=== PATIENT | male | born 1980 | race Caucasian/White ===

== ENCOUNTER 2020-12-08 22:52 | Emergency (ER) | payer OTHER, SELFPAY ==
[2020-12-08 22:52] VITALS: BP 122/92; PULSE 89; RESP 20; TEMP 36.3; O2SAT 99
--- NOTE | 2020-12-08 22:59 | ED.GENADULT ---
HPI - General Adult General Chief complaint: Overdose Stated complaint: AMB Source: patient and EMS Mode of arrival: ambulatory Limitations: no limitations History of Present Illness HPI narrative: Albert is a 40M with a PMH of substance abuse, multiple fused vertebra that was brought to the emergency department via ems after an apparent overdose. He went over to the neighbors and returned. He then started acting funny and became comatose. They then found a syringe with clear liquid. By the time first responders got there they could not get a pulse and he had agonal respirations. CPR was started and 3 rounds were done as well as 3 doses of intranasal narcan after which he came to. He currently has no complaints. He even denies chest pain after the compressions. He stated that he was not intentionally trying to OD from the drugs and denied SI and HI. Related Data Allergies Allergy/AdvReac Type Severity Reaction Status Date / Time No Known Allergies Allergy Unverified 11/26/12 13:37 Review of Systems Constitutional: Constitutional: Reports no additional constitutional complaints Eyes: Eyes: Reports no additional eye complaints ENT: Reports system reviewed and no additional complaints, except as documented Cardiovascular: Cardiovascular: Reports no additional cardiovascular complaints Respiratory: Respiratory: Reports no additional respiratory complaints Gastrointestinal: Gastrointestinal: Reports no additional gastrointestinal complaints Genitourinary: Genitourinary: Reports no additional male genitourinary complaints Musculoskeletal: Musculoskeletal: Reports no additional musculoskeletal complaints Integumentary/Breasts: Skin/Breast: Reports system reviewed and no additional complaints, except as docu Neurologic: Reports system reviewed and no additional complaints, except as documented Psychiatric: Psychiatric: Reports no additional psychiatric complaints Endocrine: Endocrine: Reports no additional endocrine complaints Hematologic/Lymphatic: Hematologic/Lymphatic: Reports no additional hematologic/lymphatic complaints Allergic/Immunologic: Allergic/Immunologic: Reports no additional allergic/immunologic complaints [facility] Family History Family History Mother Family history of thyroid disease Social History Social History Alcohol intake: current Exam Const: General: alert Orientation/consciousness: patient oriented x3 Other: Lying in bed not able to sit still HENMT: Other: normocephlic, atraumatic Eyes: Conjunctivae: conjunctivae normal Pupils: Equal, round and reactive pupils present Neck: Neck: normal visual inspection Chest: Chest palpation & inspection: normal inspection of the chest Resp: Effort & Inspection: normal respiratory effort Auscultation: clear to auscultation bilaterally Cardio: Rate: regular rate Rhythm: regular rhythm GI: Inspection: non-distended GI Palp: Yes Soft to palpation, No Tenderness to palpation present (GI) and No Guarding due to palpation present (GI) Back/Spine/Pelvis: Back: no CVA tenderness Skin: General skin exam: normal color Rashes: no rashes Neuro: General: patient oriented x3, moves all extremities and CN's II-XI intact bilaterally Other: *pupils were reactive but a bit sluggish Extrem: General: normal to inspection Psych: Appearance: grossly normal Mental Status: mental status grossly normal Affect: normal affect Course Course Emergency Course: Labs were ordered and he was placed on the monitor. However, he then decided to refuse treatment. He was A&Ox3. He was aware that if he went home the narcan could wear off and he could OD again leading to permanent pain, disability or . He voiced understanding, signed AMA paperwork and left with his family. Discharge Plan Discharge Clinical Impression: Drug overdose Patient Dispos
--- NOTE | 2020-12-09 01:50 | PC.NURSE ---
12/08/20 2310 lab staff entered room to draw blood, RN in room explained need for lab and urine specimen. pt refused, stated I dont need all that I'm fine . explained to pt overdose with no pulse, not breathing, cpr was started, narcan given. pt continues to refuse. erp dr fitch notified pt continues to refuse all treatment and observation. Dr fitch in with pt, discussed extensively outcomes of accidental overdose, cpr, no pulse and narcan will wear off and may again become unresponsive with possible imminent . pt continued to refuse. pt alert and oriented x4 (month ,day, year, birthday). 2320 Pt signed ama after extensive risks and benefits discussed by RN and Dr Fitch. 232 Pt ambulated with RN to [facility]. Mother waiting. RN explained to mother that pt had been discharged as he refused all treatments and admission.2330 pt departed [facility] ambulatory with mother.
== END 2020-12-08 23:20 | disposition left against medical advice (07) ==
PROVIDERS: Emergency Provider Family Medicine
DX: T50.901A Poisoning by unspecified drugs, medicaments and biological substances, accidental (unintentional), initial encounter (principal)
CPT/HCPCS: 99282; 99283

== ENCOUNTER 2020-12-10 07:26 | Emergency (ER) | payer OTHER, SELFPAY ==
[2020-12-10 07:30] VITALS: BP 128/80; PULSE 95; RESP 12; TEMP 36.4; O2SAT 87
--- NOTE | 2020-12-10 07:36 | ECG_ITS ---
Measurements Intervals [place] Rate: 85 P: 66 TX: 154 QRS: 96 QRSD: 97 T: 47 QT: 401 QTc: 478 Interpretive Statements SINUS RHYTHM RIGHT AXIS DEVIATION VOLTAGE CRITERIA FOR LVH CONSIDER INFERIOR INFARCT, AGE INDETERMINATE BASELINE ARTIFACT- II, III ABNORMAL ECG Electronically Signed On 12-10-2020 7:51:09 CDT by Mekhi Lainez D.O.
[2020-12-10] MEDS: NALOXONE HCL INJ 2 MG/2 ML AMP 1 MG IV PUSH (07:42)
[2020-12-10 07:55] VITALS: O2SAT 100
[2020-12-10 07:59] LABS: Basophils Absolute Auto 0.02 K/mm3 (0.00-0.10); Basophils Percent Auto 0.4 % (0.0-1.0); Eosinophils Absolute Auto 0.12 K/mm3 (0.02-0.50); Eosinophils Percent Auto 2.2 % (1.0-6.0); Hematocrit 37.1 % (40.0-54.0); Hemoglobin 12.1 g/dL (14.0-18.0); Immature Granulocyte Absolute 0.01 K/mm3 (0.00-0.00); Immature Granulocyte Percent A 0.2 % (0.0-0.0); Lymphocytes Absolute Auto 2.22 K/mm3 (1.10-4.50); Lymphocytes Percent Auto 40.8 % (18.0-42.0); Mean Corpuscular HGB Conc 32.6 g/dL (32.0-36.0); Mean Corpuscular Hemoglobin 27.8 pg (27.0-31.0); Mean Corpuscular Volume 85.3 fL (78.0-102.0); Mean Platelet Volume 8.6 fl (8.7-11.0); Monocytes Absolute Auto 0.53 K/mm3 (0.10-0.90); Monocytes Percent Auto 9.7 % (2.0-11.0); Neutrophils Absolute Auto 2.5 K/mm3 (1.7-7.2); Neutrophils Percent Auto 46.7 % (50.0-70.0); Platelet Count Result 199 K/mm3 (150-420); Red Blood Count 4.35 M/mm3 (4.70-6.10); Red Cell Distribution Width 13.8 % (11.6-14.4); White Blood Count 5.4 K/mm3 (4.8-10.8)
--- NOTE | 2020-12-10 07:59 | ED.OVERDOSE ---
HPI - Overdose General Chief Complaint: Overdose Stated Complaint: drugs Time Seen by Provider: 12/10/20 07:35 Source: patient and family Mode of arrival: ambulatory Limitations: no limitations History of Present Illness HPI Narrative: This gentleman is a 40 yr old man who comes in, brought in by his mother, because he was not acting right this am. It sounds like he snorted some Oxycodone this am, mixed with another narcotic, probably a form of fentanyl. It sounds like after that he was desatting down into the 80s for a little while. (Nothing helped this at home. There were no interventions, other than to bring him to ER. The RN gave him Narcan 1mg when he came in. He is more awake now. He was seen on 12/08/[address] Fitch in our ER. On that day 911 was called to his house. He had evidently gone over to a neighbors house, taken narcotics and then came home. He then became non responsive and 911 was called. He had no pulse detectable and only agona respirations then. He had CPR done on him for 3 rounds of 2 minutes and intranasal Narcan was given. He was brought into ER, stabilized and he woke up. He then proceeded to sign out AMA and left. I do get a history that he has had a lumbar fusion in the past. It appears that part of his motivation in taking narcotics, is probably pain relief. It is difficult to get much of a history from him as he does not talk in a clear manner, although he has no obvious speech deficit. MD complaint: accidental overdose Onset (ago): minute(s) Timing confirmed by: family member Intent: unwilling to say and other (it appears this was a simple overdose with no thought for self harm) Context: Accidental Overdose: wanted to get high and medication error Associated symptoms: other (chronic back pain) Related Data Home Medications Medication Instructions Recorded Confirmed cyclobenzaprine 10 mg PO BID 12/09/20 12/10/20 Allergies Allergy/AdvReac Type Severity Reaction Status Date / Time No Known Allergies Allergy Unverified 11/26/12 13:37 Review of Systems Constitutional: Constitutional: Reports no additional constitutional complaints Eyes: Eyes: Reports no additional eye complaints ENT: Reports system reviewed and no additional complaints, except as documented Cardiovascular: Cardiovascular: Reports no additional cardiovascular complaints Respiratory: Respiratory: Reports no additional respiratory complaints Gastrointestinal: Gastrointestinal: Reports no additional gastrointestinal complaints Genitourinary: Genitourinary: Reports no additional male genitourinary complaints Musculoskeletal: Musculoskeletal: Reports no additional musculoskeletal complaints Integumentary/Breasts: Skin/Breast: Reports system reviewed and no additional complaints, except as docu Neurologic: Reports system reviewed and no additional complaints, except as documented Psychiatric: Psychiatric: Reports no additional psychiatric complaints Endocrine: Endocrine: Reports no additional endocrine complaints Hematologic/Lymphatic: Hematologic/Lymphatic: Reports no additional hematologic/lymphatic complaints Allergic/Immunologic: Allergic/Immunologic: Reports no additional allergic/immunologic complaints [facility] Past Medical History Medical History (Updated 12/11/20 @ 00:03 by Frederick Childers MD) Chronic back pain Spinal fusion failure Family History Family History (Updated 12/11/20 @ 00:04 by Frederick Childers MD) Mother Family history of thyroid disease No significant family history Social History Social History (Updated 12/11/20 @ 00:04 by Frederick Childers MD) Alcohol intake: current Additional living arrangements comments: now living with mother Exam Const: Nutritional Appearance: thin Limitations: altered mental status HENMT: Head: normal to inspection Ears: external ears normal General nose exam: Normal external nose present Face and sinus: normal facial exam Mouth: Yes Abn
[2020-12-10 08:30] LABS: Alanine Aminotransferase 78 U/L (16-63); Albumin Level 3.6 g/dL (3.4-5.0); Alkaline Phosphatase 60 U/L (46-116); Anion Gap 5 mmol/L (8-16); Aspartate Amino Transferase 63 U/L (15-37); Bilirubin,Total 0.4 mg/dL (0.00-1.00); Blood Urea Nitrogen 13 mg/dL (7-18); Calcium 8.5 mg/dL (8.5-10.1); Carbon Dioxide 30 mmol/L (21-32); Chloride 102 mmol/L (98-108); Estimated Glomerular Filt Rate > 60; Glucose 94 mg/dL (70-99); Osmolality Calculated 284 mOsm/kg (285-295); Potassium 3.2 mmol/L (3.5-5.1); Salicylate 1.6 mg/dL (2.8-20.0); Sodium 137 mmol/L (136-145); Thyroid Stimulating Hormone 4.74 uIU/mL (0.36-3.74); Total Protein 7.2 g/dL (6.4-8.2)
[2020-12-10 08:32] LABS: Acetaminophen < 2 ug/mL (10-30); Ethanol < 3 mg/dL (0-6)
[2020-12-10] MEDS: POTASSIUM BICARBONATE 25 MEQ TABEF 50 MEQ PO (08:48)
[2020-12-10] MEDS: KETOROLAC 30 MG/ML VIAL (*BKC) IV PUSH (08:49)
[2020-12-10 08:59] VITALS: BP 133/82; PULSE 70; O2SAT 100
== END 2020-12-10 09:00 | disposition home or self-care (01) ==
PROVIDERS: Emergency Provider Emergency Medicine
DX: T50.901A Poisoning by unspecified drugs, medicaments and biological substances, accidental (unintentional), initial encounter (principal)
CPT/HCPCS: 36415; 80053; 80307; 84443; 85025; 93005; 96374; 96375; 99283; 99284; A9270; J1885; J2310

== ENCOUNTER 2021-01-02 19:17 | Emergency (ER) | payer OTHER, SELFPAY ==
[2021-01-02 19:35] VITALS: BP 137/88; PULSE 95; RESP 20; TEMP 36.6; O2SAT 96
[2021-01-02 19:41] VITALS: RESP 20
[2021-01-02 19:43] LABS: Basophils Absolute Auto 0.04 K/mm3 (0.00-0.10); Basophils Percent Auto 0.4 % (0.0-1.0); Eosinophils Absolute Auto 0.25 K/mm3 (0.02-0.50); Eosinophils Percent Auto 2.6 % (1.0-6.0); Hematocrit 39.1 % (40.0-54.0); Hemoglobin 12.9 g/dL (14.0-18.0); Immature Granulocyte Absolute 0.02 K/mm3 (0.00-0.00); Immature Granulocyte Percent A 0.2 % (0.0-0.0); Lymphocytes Absolute Auto 2.59 K/mm3 (1.10-4.50); Lymphocytes Percent Auto 26.9 % (18.0-42.0); Mean Corpuscular Hemoglobin 28.2 pg (27.0-31.0); Mean Corpuscular Volume 85.6 fL (78.0-102.0); Mean Platelet Volume 8.7 fl (8.7-11.0); Monocytes Absolute Auto 0.96 K/mm3 (0.10-0.90); Neutrophils Absolute Auto 5.8 K/mm3 (1.7-7.2); Neutrophils Percent Auto 59.9 % (50.0-70.0); Platelet Count Result 261 K/mm3 (150-420); Red Blood Count 4.57 M/mm3 (4.70-6.10); Red Cell Distribution Width 14.1 % (11.6-14.4); White Blood Count 9.6 K/mm3 (4.8-10.8)
[2021-01-02 20:00] LABS: Alanine Aminotransferase 143 U/L (16-63); Albumin Level 4.1 g/dL (3.4-5.0); Alkaline Phosphatase 79 U/L (46-116); Anion Gap 11 mmol/L (8-16); Aspartate Amino Transferase 81 U/L (15-37); Bilirubin,Total 0.4 mg/dL (0.00-1.00); Blood Urea Nitrogen 18 mg/dL (7-18); Calcium 9.3 mg/dL (8.5-10.1); Carbon Dioxide 27 mmol/L (21-32); Chloride 101 mmol/L (98-108); Creatine Kinase 518 U/L (39-308); Estimated CRCL calculation 80 ml/min; Estimated Glomerular Filt Rate > 60; Glucose 84 mg/dL (70-99); Osmolality Calculated 288 mOsm/kg (285-295); Potassium 3.6 mmol/L (3.5-5.1); Sodium 139 mmol/L (136-145); Total Protein 8.1 g/dL (6.4-8.2)
[2021-01-02] MEDS: SODIUM CHLORIDE 0.9% IV 1,000 ML 999 ML IV CONT (20:21)
--- NOTE | 2021-01-02 20:35 | PC.NURSE ---
Pt. not wanting to stay and give urine. Pt. wanting to sign AMA and leave. Pt. states he knows he has a drug problem and has f/u plans and a bed awaiting him at [facility] for rehab program. ERP in to explain reasons as to why we need urine and possible admit to hospital. Pt still refusing p all risks/benefits explained to him by this RN and ERP Dr Conde. Paperwork signed and pt. left c mother.
--- NOTE | 2021-01-02 20:44 | ED.GENADULT ---
HPI - General Adult General Chief complaint: Overdose Stated complaint: on something Source: patient and family Mode of arrival: ambulatory Limitations: no limitations History of Present Illness HPI narrative: patient presents to the ER with his mother after his mother was concerned that he is not acting appropriately, the patient does have a history of drug abuse but denies any current drug use except for prescription Adderall and prescription Flexeril that he took earlier today in the Adderall 2 days ago. Currently denies any chest pain no shortness of breath no nausea vomiting no headaches no blurry vision. And no fever chills no diarrhea constipation or abdominal pain. Patient apparently uses methamphetamines but denies having used any recently and according to patient none today. Onset (ago): day(s) Radiation: non-radiation Related Data Home Medications Medication Instructions Recorded Confirmed cyclobenzaprine 10 mg PO BID 12/09/20 01/02/21 trazodone 50 mg PO HS 01/02/21 01/02/21 Allergies Allergy/AdvReac Type Severity Reaction Status Date / Time No Known Allergies Allergy Unverified 11/26/12 13:37 Review of Systems Review of Systems: All systems reviewed & are unremarkable except as noted in HPI and below PMFSH Past Medical History Medical History Chronic back pain Spinal fusion failure Family History Family History Mother Family history of thyroid disease No significant family history Social History Social History Alcohol intake: current Substance use type: methamphetamine and prescription drug Additional living arrangements comments: now living with mother Course Course Emergency Course: Patient had lab work that was reviewed with patient had a high CK level of 500 patient received IV fluids was able give us a urine sample and did not want to wait in the ER any longer, and his mother also left and decided that she would wait in the car. Patient was some signing out against medical advice. Vital Signs Vital signs: Vital Signs Temperature 36.6 C 01/02/21 19:35 Pulse Rate 95 01/02/21 19:35 Respiratory Rate 20 01/02/21 19:35 Blood Pressure 137/88 01/02/21 19:35 Pulse Oximetry 96 01/02/21 19:35 Temperature 36.6 C 01/02/21 19:35 Pulse Rate 95 01/02/21 19:35 Respiratory Rate 20 01/02/21 19:41 Blood Pressure 137/88 01/02/21 19:35 Pulse Oximetry 96 01/02/21 19:35 Medical Decision Making Vital Signs Vital Signs: Vital Signs Temperature 36.6 C 01/02/21 19:35 Pulse Rate 95 01/02/21 19:35 Respiratory Rate 20 01/02/21 19:35 Blood Pressure 137/88 01/02/21 19:35 Pulse Oximetry 96 01/02/21 19:35 Temperature 36.6 C 01/02/21 19:35 Pulse Rate 95 01/02/21 19:35 Respiratory Rate 20 01/02/21 19:41 Blood Pressure 137/88 01/02/21 19:35 Pulse Oximetry 96 01/02/21 19:35 Lab Data Result diagrams: 01/02/21 19:40 01/02/21 19:40 Labs: Lab Results 01/02/21 01/02/21 Range/Units 19:40 19:40 WBC 9.6 (4.8-10.8) K/mm3 RBC 4.57 L (4.70-6.10) M/mm3 Hgb 12.9 L (14.0-18.0) g/dL Hct 39.1 L (40.0-54.0) % MCV 85.6 (78.0-102.0) fL MCH 28.2 (27.0-31.0) pg MCHC 33.0 (32.0-36.0) g/dL RDW 14.1 (11.6-14.4) % Plt Count 261 (150-420) K/mm3 MPV 8.7 (8.7-11.0) fl Immature Gran % (Auto) 0.2 H (0.0-0.0) % Neut % (Auto) 59.9 (50.0-70.0) % Lymph % (Auto) 26.9 (18.0-42.0) % [place] % (Auto) 10.0 (2.0-11.0) % Eos % (Auto) 2.6 (1.0-6.0) % Baso % (Auto) 0.4 (0.0-1.0) % Lymph # (Auto) 2.59 (1.10-4.50) K/mm3 [place] # (Auto) 0.96 H (0.10-0.90) K/mm3 Eos # (Auto) 0.25 (0.02-0.50) K/mm3 Baso # (Auto) 0.04 (0.00-0.10) K/mm3 Abs Immat Gran (auto) 0.02 H (0.00-0.00) K/mm3 Absol
[2021-01-02 20:53] VITALS: BP 128/79; PULSE 87; RESP 18; O2SAT 98
== END 2021-01-02 20:54 | disposition left against medical advice (07) ==
PROVIDERS: Emergency Provider Emergency Medicine
DX: F19.90 Other psychoactive substance use, unspecified, uncomplicated (principal)
CPT/HCPCS: 36415; 80053; 82550; 85025; 99282; 99283; J7030

== ENCOUNTER 2021-11-23 06:36 | Emergency (ER) | payer OTHER, SELFPAY ==
[2021-11-23] VITALS (34 sets, daily range): BP systolic 101–152; BP diastolic 72–132; PULSE 80–130; RESP 18–34; TEMP 36.1; O2SAT 96–100
--- NOTE | ~2021-11-23 | XR_ITS ---
EXAMINATION: XR chest ET placement DATE: 11/23/2021 08:48 INDICATION: Endotracheal tube advancement. TECHNIQUE: A single frontal view of the chest was obtained. COMPARISON: Chest single view at 7:50 AM FINDINGS: There is no pneumonia, pleural effusion, or pneumothorax. The heart size is normal. The end otracheal tube tip is 4.5 cm above the haile. The nasogastric tube tip is beyond the inferior margin of the radiograph, but at least to the stomach. There are changes of posterior fusion procedure in t horacolumbar spine. There is fracture of the vertical casimiro on the right. IMPRESSION: 1. No acute cardiopulmonary disease. 2. Posterior fusion procedure involving thoracolumbar spine with fractured right-sided vertical casimiro. Reviewed, dictated and finalized at location B. IMPRESSION: 1. No acute cardiopulmonary disease. 2. Posterior fusion procedure involving thoracolumbar spine with fractured righ t-sided vertical casimiro.
--- NOTE | ~2021-11-23 | CT_ITS ---
EXAMINATION: CT brain wo con DATE: 11/23/2021 09:09 INDICATION: Altered mental status. Unresponsive. TECHNIQUE: Computed tomography (CT) of the head was performed without intravenous contrast. The mA wa s adjusted according to patient size. Iterative reconstruction technique was employed. The dose-lengt h product was 681.00 mGy-cm. COMPARISON: Head CT 09/12/2013 FINDINGS: There is an acute subdural hematoma overlying left frontoparietal region with maximum thick ness of 3 mm. There is no acute ischemic infarct or abnormal mass lesion. The ventricles are normal i n size. There is mucosal thickening in the paranasal sinuses. The orbits are normal. There is a small left mastoid effusion. There is a left posterior scalp laceration. IMPRESSION: 1. Acute left-sided frontoparietal subdural hematoma with maximum thickness of 3 mm. I called this re sult to Dr. Sharp. Reviewed, dictated and finalized at location B. IMPRESSION: 1. Acute left-sided frontoparietal subdural hematoma with maximum thickness of 3 mm. I called this result to Dr. Sharp.
--- NOTE | ~2021-11-23 | XR_ITS ---
EXAMINATION: XR abdomen NG/feed tube insert DATE: 11/23/2021 08:49 INDICATION: Orogastric tube placement. TECHNIQUE: A supine view of the abdomen was obtained. COMPARISON: None. FINDINGS: The lower abdomen is excluded. There are no dilated loops of bowel. The nasogastric tube ti p is in the first portion of the duodenum. There are changes of posterior fusion procedure in thoraco lumbar spine. There is fracture of the right-sided vertical casimiro. IMPRESSION: 1. Nasogastric tube tip in the first portion of the duodenum. 2. Posterior fusion procedure in thoracolumbar spine with fracture of the right-sided vertical casimiro. Reviewed, dictated and finalized at location B. IMPRESSION: 1. Nasogastric tube tip in the first portion of the duodenum. 2. Posterior fusion procedure in thoracolumbar spine with fracture of the right -sided vertical casimiro.
--- NOTE | ~2021-11-23 | XR_ITS ---
CORRECTED REPORT order change 11/05/20[place] [facility] [place] XR chest ET placement EXAM DATE: 11/23/2021 07:48 INDICATION: ET tube placement, pt found unresponsive this morning . TECHNIQUE: Portable AP frontal chest x-ray was obtained. There is no prior study for comparison. FINDINGS: Endotracheal tube tip is 4-5 centimeters above the haile. No confluent consolidation, pneumothorax or pleural effusion suspected. Cardiomediastinal silhouette is normal. Patient has thoracolumbar Lopez rods and the right one is fractured between the T11 and T12 vertebral body levels. IMPRESSION: 1. ET tube in position. 2. No acute cardiopulmonary findings. 3. Thoracolumbar Lopez rods, right side fractured. Reviewed, dictated and finalized at location A. MTDD
--- NOTE | ~2021-11-23 | CT_ITS ---
EXAMINATION: CT pelvis wo con DATE: 11/23/2021 09:09 INDICATION: Found unresponsive in a ditch TECHNIQUE: High resolution computed tomography (CT) of the pelvis was performed without intravenous c ontrast. Additional sagittal and coronal reconstructions were performed. The dose-length product was 331.31 mGy-cm. COMPARISON: None FINDINGS: 2 mm retrolisthesis L4 on L5 and 4 mm retrolisthesis L5 on S1. The corresponding disc heights are rel atively preserved Rae catheter in the bladder. Visualized portion of the bowels are unremarkable. N o free fluid in the pelvis. No pathologically enlarged pelvic or inguinal lymphadenopathy.. No fractu re. Polyarticular osteoarthritis, moderate severity at the right hip and mild at the left hip and venu ateral sacroiliac joints. Mild to moderate lower lumbar facet osteoarthritis. IMPRESSION: 1. Mild to moderate polyarticular osteoarthritis in the pelvis and lower lumbar spine. No acute osseo us abnormality. Reviewed, dictated and finalized at location A. IMPRESSION: 1. Mild to moderate polyarticular osteoarthritis in the pelvis and lower lumbar spine. No acute osseous abnormality.
--- NOTE | ~2021-11-23 | CT_ITS ---
EXAMINATION: CT cervical spine wo con DATE: 11/23/2021 09:09 INDICATION: Unresponsive, found down in a ditch. TECHNIQUE: Computed tomography (CT) of the cervical spine was performed without intravenous contrast. Automated exposure control and iterative reconstruction technique were employed. The dose-length pro duct was 412.00 mGy-cm. COMPARISON: Radiograph dated 01/25/2018 FINDINGS: Alignment is normal. Vertebral body heights are normal. No fracture. Moderate disc height loss at C5- C6 and C6-C7, both with severe bilateral uncovertebral osteoarthritis and with more prominent degener ative endplate changes at the latter. Remaining disc heights are normal with additional multilevel mi ld to moderate uncovertebral osteoarthritis. Bilateral mild multilevel cervical facet osteoarthritis. Together this contributes to moderate neural foraminal stenosis on the left at C6-C7, mild neural fo raminal stenosis on the left at C6-C7 and bilaterally at C5-C6 and minimally at several remaining evnu ateral cervical neural foramina. Disc bulges at C4-C5 and posterior discussed by complex at C5-C6 and C6-C7 result in mild central canal stenosis at each of these levels. Expected appearance of the visu alized portions of endotracheal tube and nasogastric tube. Cervical soft tissues are otherwise unrema rkable. Minimal biapical pleural-parenchymal scarring. IMPRESSION: 1. Moderate lower cervical spondylosis. No acute osseous abnormality. Reviewed, dictated and finalized at location A.
--- NOTE | 2021-11-23 06:46 | ECG_ITS ---
Measurements Intervals [place] Rate: 112 P: DC: 0 QRS: 84 QRSD: 102 T: 29 QT: 379 QTc: 519 Interpretive Statements ATRIAL FIBRILLATION WITH RAPID VENTRICULAR RESPONSE MINIMAL VOLTAGE CRITERIA FOR LVH, CONSIDER NORMAL VARIANT NONSPECIFIC ST AND T-WAVE ABNORMALITY ABNORMAL ECG NO PREVIOUS ECG AVAILABLE FOR COMPARISON Electronically Signed On 11-23-2021 17:44:12 CDT by Jordan Vasquez M.D.
--- NOTE | 2021-11-23 06:46 | ED.AMS ---
HPI - Altered Mental Status General Chief Complaint: Altered Mental Status <Yves Pacheco MD - Last Filed: 11/26/21 14:00> Stated Complaint: AMBULANCE <Yves Pacheco MD - Last Filed: 11/26/21 14:00> Time Seen by Provider: 11/23/21 06:46 <Yves Pacheco MD - Last Filed: 11/26/21 14:00> Source: patient <Yves Pacheco MD - Last Filed: 11/26/21 14:00> History of Present Illness HPI narrative: Ranjeet Sandoval was found unresponsive in a ditch. He was 1st noted by the police received approximately 5 mg of Narcan before he was brought into the ER. The patient is hypothermic. He had a blood sugar of 24. He is agitated and thrashing around. he does not follow verbal commands. multiple abrasions and hematomas on his head. <Yves Pacheco MD - Last Filed: 11/26/21 14:00> MD complaint: altered mental status and intoxication <Yves Pacheco MD - Last Filed: 11/26/21 14:00> Related Data Home Medications: Home Medications Medication Instructions Recorded Confirmed Unable to Obtain Home Medications 11/23/21 11/23/21 <Yves Pacheco MD - Last Filed: 11/26/21 14:00> Allergies/Adverse Reactions: Allergies Allergy/AdvReac Type Severity Reaction Status Date / Time Unable to Assess Allergy Verified 11/23/21 07:12 <Yves Pacheco MD - Last Filed: 11/26/21 14:00> Review of Systems Review of Systems: Patient is agitated and restless. He does not follow verbal commands. <Yves Pacheco MD - Last Filed: 11/26/21 14:00> Exam Const: General: confusion <Yves Pacheco MD - Last Filed: 11/26/21 14:00> Limitations: altered mental status <Yves Pacheco MD - Last Filed: 11/26/21 14:00> Other: His entire body is covered with mud. <Yves Pacheco MD - Last Filed: 11/26/21 14:00> HENMT: Other: Pupils are dilated but reacting to light. <Yves Pacheco MD - Last Filed: 11/26/21 14:00> Eyes: Conjunctivae: conjunctivae normal <Yves Pacheco MD - Last Filed: 11/26/21 14:00> Pupils: Equal, round and reactive pupils present <Yves Pacheco MD - Last Filed: 11/26/21 14:00> Neck: Neck: normal visual inspection <Yves Pacheco MD - Last Filed: 11/26/21 14:00> Other: Multiple healed scars on his neck. <Yves Pacheco MD - Last Filed: 11/26/21 14:00> Chest: Chest palpation & inspection: normal inspection of the chest <Yves Pacheco MD - Last Filed: 11/26/21 14:00> Resp: Effort & Inspection: normal respiratory effort <Yves Pacheco MD - Last Filed: 11/26/21 14:00> Auscultation: clear to auscultation bilaterally <Yves Pacheco MD - Last Filed: 11/26/21 14:00> Cardio: Rate: regular rate <Yves Pacheco MD - Last Filed: 11/26/21 14:00> Rhythm: regular rhythm <Yves Pacheco MD - Last Filed: 11/26/21 14:00> GI: GI Palp: Yes Soft to palpation <Yves Pacheco MD - Last Filed: 11/26/21 14:00> : Male General Exam: Yes normal external exam <Yves Pacheco MD - Last Filed: 11/26/21 14:00> Testes: Testes normal <Yves Pacheco MD - Last Filed: 11/26/21 14:00> Skin: Other: Multiple abrasions and hematomas on his head. <Yves Pacheco MD - Last Filed: 11/26/21 14:00> Neuro: Other: Patient is agitated. He does not follow verbal commands. He is moving all his limbs. <Yves Pacheco MD - Last Filed: 11/26/21 14:00> Extrem: General: normal to inspection <Yves Pacheco MD - Last Filed: 11/26/21 14:00> Psych: Appearance: disheveled <Yves Pacheco MD - Last Filed: 11/26/21 14:00> Course Course Emergency Course: 0740: Pt was seen intubated and did not speak. Please see Dr Pacheco's notes. O: Pt sedated via IV Propofol, ETtube in situ. Occipital scalp not seen. Skin was dirty with mud, partially cleaned. HEENT: wnl CVS: tachycardia, both HS heard. RESP: chest was clear. ABD: benign. MS:no acute abn
[2021-11-23 07:00] LABS: Hematocrit 36.8 % (40.0-54.0); Hemoglobin 12.1 g/dL (14.0-18.0); Mean Corpuscular HGB Conc 32.9 g/dL (32.0-36.0); Mean Corpuscular Hemoglobin 28.8 pg (27.0-31.0); Mean Corpuscular Volume 87.6 fL (78.0-102.0); Mean Platelet Volume 9.2 fl (8.7-11.0); Platelet Count Result 315 K/mm3 (150-420); Red Cell Distribution Width 12.9 % (11.6-14.4)
[2021-11-23 07:03] LABS: White Blood Count 20.5 K/mm3 (4.8-10.8)
[2021-11-23] MEDS: LORazepam INJ (*CRX) 2 MG/ML VIAL (07:05)
[2021-11-23 07:08] LABS: INR 1.1; Partial Thromboplastin Time 27.6 SEC (23.90-30.70); Prothrombin Time 11.8 Seconds (9.50-12.10)
[2021-11-23 07:14] LABS: Base Excess ABG -4.7 mmol/L (0-2); HCO3 ABG 20.7 mmol/L (23-29); Oxygen Content ABG 17.8 %vol (16.0-22.0); Oxygen Saturation ABG 98.6 % (95-97); Oxyhemoglobin 97.2 % (94-100); PCO2 ABG 39.6 mmHg (35-45); PO2 ABG 204.8 mmHg (80-90); Total Hemoglobin 12.7 g/dL (12.0-18.0); pH ABG 7.34 (7.35-7.45)
[2021-11-23 07:15] LABS: Site Drawn RIGHT FEMORAL
[2021-11-23 07:16] LABS: Lactic Acid Reflex 2.2 mmol/L (0.4-2.0)
[2021-11-23 07:19] LABS: Device OTHER DEVICE
[2021-11-23 07:20] LABS: Alanine Aminotransferase 61 U/L (16-63); Albumin Level 3.6 g/dL (3.4-5.0); Alkaline Phosphatase 65 U/L (46-116); Anion Gap 7 mmol/L (8-16); Aspartate Amino Transferase 69 U/L (15-37); Bilirubin,Total 0.4 mg/dL (0.00-1.00); Blood Urea Nitrogen 26 mg/dL (7-18); Carbon Dioxide 28 mmol/L (21-32); Chloride 103 mmol/L (98-108); Estimated CRCL calculation 81 ml/min; Estimated Glomerular Filt Rate > 60; Ethanol 3 mg/dL (0-6); Glucose 168 mg/dL (70-99); NT Pro B Type Natriuretic Pept 68 pg/mL (0-125); Osmolality Calculated 294 mOsm/kg (285-295); Potassium 5.4 mmol/L (3.5-5.1); Sodium 138 mmol/L (136-145); Total Protein 7.2 g/dL (6.4-8.2)
[2021-11-23 07:21] LABS: Acetaminophen < 2 ug/mL (10-30)
[2021-11-23 07:21] LABS: Salicylate 1.1 mg/dL (2.8-20.0); Thyroid Stimulating Hormone 0.89 uIU/mL (0.36-3.74); Troponin I 8.3 ng/L (0.00-60.4)
[2021-11-23 07:23] LABS: Band Neutrophils Percent 1 % (0-6); Lymphocytes Absolute Manual 5.53 K/mm3 (1.1-4.5); Lymphocytes Percent Manual 27 % (18-44); Monocytes Absolute Manual 1.02 K/mm3 (0.1-0.90); Monocytes Percent Manual 5 % (3-9); Neutrophils Absolute Manual 13.94 K/mm3 (1.3-6.7); Neutrophils Percent Manual 67 % (46-73); Total Cells Counted 100
[2021-11-23 07:24] LABS: Platelet Estimate Adequate (Adequate)
--- NOTE | 2021-11-23 07:25 | PC.NURSE ---
Report given to Hoang Alfaro. Pt prepped for intubation.
[2021-11-23] MEDS: PROPOFOL IV EMULSION 100 ML 4.62 MG IV CONT (07:30)
[2021-11-23 08:12] LABS: Add Urine Microscopic? YES; Appearance Urine Clear (Clear); Bilirubin Urine Negative (Negative); Blood Urine 1+ (Negative); Color Urine Light Yellow (Yellow); Glucose Urine UA Trace (Negative); Ketones Urine Trace (Negative); Leukocyte Esterase Ur Negative (Negative); Nitrate Urine Negative (Negative); Protein Urine Negative (Negative); Urobilinogen Urine 0.2 mg/dL (0.2-1.0); pH Urine 6.5 (5.0-8.0)
[2021-11-23 08:18] LABS: Bacteria Urine Trace /hpf; RBC Urine 0-2 /hpf (0-2); WBC Urine None seen /hpf (0-3)
[2021-11-23 08:22] LABS: Amphetamine Screen Urine Positive (Negative); Barbiturate Screen Urine Negative (Negative); Benzodiazepines Screen Urine Negative (Negative); Cannabinoid Screen Urine Positive (Negative); Cocaine Screen Urine Negative (Negative); Methadone Screen Urine Negative (Negative); Opiate Screen Urine Negative (Negative); Phencyclidine Screen Urine Negative (Negative)
[2021-11-23 09:21] LABS: Oxygen Content ABG 19.9 %vol (16.0-22.0); Oxygen Saturation ABG 98.5 % (95-97); Oxyhemoglobin 98.2 % (94-100); PCO2 ABG 48.3 mmHg (35-45); PO2 ABG 157.9 mmHg (80-90); Total Hemoglobin 14.2 g/dL (12.0-18.0); pH ABG 7.28 (7.35-7.45)
[2021-11-23 09:22] LABS: Fractional Inspired Oxygen 40 %; Modified Allen's Test Pass; Site Drawn LEFT RADIAL
[2021-11-23 09:23] LABS: Device OTHER DEVICE
--- NOTE | 2021-11-23 09:41 | PC.NURSE ---
0920 RN TO TAKE PT TO CT FOR SCANS CARDIOPULMONARY WITH RN AND MONITOR AND TECH PT RETA WELL AND RETURNED TO ED
[2021-11-23 09:54] LABS: Reflex Lactic Acid Yes or No Add Lactic
[2021-11-23] MEDS: LACTATED RINGERS 1,000 ML 999 ML IV CONT (09:59)
[2021-11-23] MEDS: METOPROLOL TARTRATE INJ 5 MG/5 ML VIAL IV PUSH (10:03)
[2021-11-23 10:16] LABS: Glucose Point of Care 77 mg/dl (65-105)
[2021-11-23] MEDS: DEXTROSE 50% 25 GM/50 ML SYRINGE IV PUSH (10:29)
[2021-11-23] MEDS: SODIUM BICARBONATE 8.4% 50 MEQ/50 ML SYRINGE IV PUSH (10:29)
[2021-11-23 10:34] LABS: Lactic Acid 1.3 mmol/L (0.4-2.0)
--- NOTE | 2021-11-23 10:38 | PC.NURSE ---
metoprolol 2.[address] lanier due to b/p
--- NOTE | 2021-11-23 10:39 | PC.NURSE ---
1030 air evac here for pt
== END 2021-11-23 10:50 | disposition short-term general hospital (02) ==
PROVIDERS: Internal Medicine Critical Care Medicine; Emergency Provider Emergency Medicine
DX: S06.5X9A Traumatic subdural hemorrhage with loss of consciousness of unspecified duration, initial encounter (principal); R45.1 Restlessness and agitation
CPT/HCPCS: 31500; 36415; 36600; 70450; 72125; 72192; 80053; 80307; 81001; 82805; 82948; 83605; 83735; 83880; 84443; 84484; 85025; 85610; 85730; 87040; 93005; 96361; 96365; 96366; 96368; 96375; 99291; J0696; J1630; J2060; J2704; J3370; J7030; J7120

== ENCOUNTER 2022-02-18 19:20 | Emergency (ER) | payer OTHER, SELFPAY ==
[2022-02-18] VITALS (7 sets, daily range): BP systolic 125–171; BP diastolic 81–103; PULSE 85–122; RESP 6–23; TEMP 36.6; O2SAT 95–99
--- NOTE | 2022-02-18 19:27 | ED.OVERDOSE ---
HPI - Overdose General Chief Complaint: Overdose Stated Complaint: drug overdose Time Seen by Provider: 02/18/22 19:27 Source: patient and family History of Present Illness HPI Narrative: 41-year-old male history of drug abuse( narcotics), marijuana use, chronic low back status post vertebral fracture/spinal fusion was brought into the ER by his mother with -- decreased responsiveness -- decreased respiratory rate -- pinpoint pupils -- blood sugar the 129 the patient received Narcan 2 mg with immediate reversal of his unresponsiveness. Patient is alert and oriented. Patient is hemodynamically stable. He is oxygenating well. Patient denied taking any intoxicants. Intent: unwilling to say Treatments Prior to Arrival: none Related Data Home Medications Medication Instructions Recorded Confirmed cyclobenzaprine 10 mg tablet 10 mg PO BID 12/09/20 01/02/21 trazodone 50 mg tablet 50 mg PO HS 01/02/21 01/02/21 Unable to Obtain Home Medications 11/23/21 11/23/21 Allergies Allergy/AdvReac Type Severity Reaction Status Date / Time Unable to Assess Allergy Verified 12/01/21 09:03 Review of Systems Review of Systems: All systems reviewed & are unremarkable except as noted in HPI and below Constitutional: Constitutional: Reports as per HPI and Reports no additional constitutional complaints Eyes: Eyes: Reports as per HPI and Reports no additional eye complaints ENT: Reports system reviewed and no additional complaints, except as documented and Reports as per HPI Cardiovascular: Cardiovascular: Reports as per HPI and Reports no additional cardiovascular complaints Respiratory: Respiratory: Reports as per HPI and Reports no additional respiratory complaints Gastrointestinal: Gastrointestinal: Reports as per HPI and Reports no additional gastrointestinal complaints Genitourinary: Genitourinary: Reports no additional male genitourinary complaints and Reports as per HPI Musculoskeletal: Musculoskeletal: Reports no additional musculoskeletal complaints and Reports as per HPI Integumentary/Breasts: Skin/Breast: Reports system reviewed and no additional complaints, except as docu and Reports as per HPI Comments: Patient has abrasions on his anterior chest wall. Neurologic: Comments: Patient was initially unresponsive with subsequently after the Narcan is alert and oriented without any focal deficits. Psychiatric: Psychiatric: Reports no additional psychiatric complaints Endocrine: Endocrine: Reports no additional endocrine complaints Hematologic/Lymphatic: Hematologic/Lymphatic: Reports no additional hematologic/lymphatic complaints and Reports as per HPI Allergic/Immunologic: Allergic/Immunologic: Reports no additional allergic/immunologic complaints PMFSH Past Medical History Medical History Chronic back pain Spinal fusion failure Family History Family History Mother Family history of thyroid disease No significant family history Social History Social History Alcohol intake: current Substance use type: methamphetamine and prescription drug Additional living arrangements comments: now living with mother Exam Const: General: diaphoretic and ill appearing Nutritional Appearance: well nourished Limitations: altered mental status HENMT: Head: normal to inspection Ears: external ears normal General nose exam: Normal external nose present Face and sinus: normal facial exam Mouth: Yes Normal oral and palatal mucosa present Throat: posterior oropharynx normal Eyes: Conjunctivae: conjunctivae normal Pupils: Equal, round and reactive pupils present ( Pinpoint pupils) Neck: Neck: normal visual inspection, no lymphadenopathy and no meningeal signs Chest: Chest palpation & inspection: normal inspection of the chest Resp:
[2022-02-18] MEDS: NALOXONE HCL INJ 2 MG/2 ML AMP IV PUSH (19:28)
--- NOTE | 2022-02-18 19:29 | ECG_ITS ---
Measurements Intervals [place] Rate: 97 P: 58 NH: 162 QRS: 80 QRSD: 92 T: 41 QT: 352 QTc: 448 Interpretive Statements SINUS RHYTHM MINIMAL Q WAVES- INFERIOR LEADS BASELINE ARTIFACT- II, III, AVF, V6 BORDERLINE ECG Electronically Signed On 02-18-2022 21:25:22 CDT by Mekhi Lainez D.O.
[2022-02-18] MEDS: SODIUM CHLORIDE 0.9% IV 1,000 ML 999 ML IV CONT (19:30)
[2022-02-18 19:34] LABS: Glucose Point of Care 129 mg/dl (65-105)
--- NOTE | 2022-02-18 20:00 | PC.NURSE ---
master hearth technician goes into Pt's room to attempt to draw labs. Pt refused states that he did not any needles near him. Lab states she reeducated pt but pt still refused. Lab notified RN and ERP of pt's refusal.
--- NOTE | 2022-02-18 20:48 | PC.NURSE ---
Pt refused head CT states that he did not lose conciseness and does not think he has any brain damage. Pt educated on importance of the head CT, but pt still refuses. Pt states he also talked to ERP about not getting a head CT. Consulted ERP who agreed that pt had told him of the refusal and ordered would be canceled.
--- NOTE | 2022-02-18 20:55 | PC.NURSE ---
RN went to give pt 2mg of Naloxone SubQ injection before pt leaving. Pt refused states that he was tired of getting shots and did not want another headache that the narcan gives him. RN educated on importance of not receiving the naloxone and some potential consequences including becoming unresponsive again and even . Pt still refused to get the shot stating he was done with needles and ready to leave. ERP notified. ERP goes into room and also attempts reeducation of pt. Pt still refuses and asks for his discharge paperwork. ERP states to document and his discharge papers will be ready.
== END 2022-02-18 21:00 | disposition left against medical advice (07) ==
PROVIDERS: Emergency Provider Internal Medicine Critical Care Medicine
DX: R41.82 Altered mental status, unspecified (principal); T40.601A Poisoning by unspecified narcotics, accidental (unintentional), initial encounter
CPT/HCPCS: 82948; 93005; 96361; 96374; 99284; J2310; J7030

== ENCOUNTER 2022-11-23 07:09 | Outpatient (CLI) | payer OTHER, SELFPAY ==
[2022-11-23 07:25] LABS: Hematocrit 41.9 % (40.0-54.0); Hemoglobin 14.4 g/dL (14.0-18.0); Mean Corpuscular HGB Conc 34.4 g/dL (32.0-36.0); Mean Corpuscular Hemoglobin 29.1 pg (27.0-31.0); Mean Corpuscular Volume 84.8 fL (78.0-102.0); Mean Platelet Volume 9.1 fl (8.7-11.0); Platelet Count Result 217 K/mm3 (150-420); Red Blood Count 4.94 M/mm3 (4.70-6.10); Red Cell Distribution Width 12.5 % (11.6-14.4)
[2022-11-23 07:41] LABS: Prothrombin Time 11.1 Seconds (9.50-12.10)
[2022-11-23 07:53] LABS: Alanine Aminotransferase 55 U/L (16-63); Alkaline Phosphatase 75 U/L (46-116); Anion Gap 8 mmol/L (8-16); Aspartate Amino Transferase 28 U/L (15-37); Bilirubin,Total 0.4 mg/dL (0.00-1.00); Blood Urea Nitrogen 13 mg/dL (7-18); Calcium 9.1 mg/dL (8.5-10.1); Carbon Dioxide 29 mmol/L (21-32); Chloride 104 mmol/L (98-108); Estimated Glomerular Filt Rate > 60; Glucose 89 mg/dL (70-99); Osmolality Calculated 291 mOsm/kg (285-295); Sodium 141 mmol/L (136-145); Total Protein 7.7 g/dL (6.4-8.2)
[2022-11-28 04:48] LABS: Hepatitis Be Antibody Nonreactive
[2022-11-28 04:49] LABS: Hepatitis B Surface Antibody Nonreactive (Nonreactive)
[2022-12-01 09:39] LABS: Reference Lab Test Name LIVER FIBROSIS
== END 2022-11-23 07:10 | disposition home or self-care (01) ==
LOC: CHSLAB 07:12
PROVIDERS: PCP Internal Medicine; Visit Provider Nurse Practitioner Family
DX: B19.20 Unspecified viral hepatitis C without hepatic coma (principal)
CPT/HCPCS: 36415; 80053; 81596; 85027; 85610; 86706; 86707

== ENCOUNTER 2023-01-18 10:03 | Outpatient (CLI) | payer OTHER, SELFPAY ==
[2023-01-22 11:35] LABS: Hepatitis C RNA, Quant PCR 1630000 IU/mL
[2023-01-22 11:37] LABS: Hepatitis C Viral RNA PCR 1720000 IU/mL
[2023-01-24 19:32] LABS: HCV Genotype, LiPA 1a
== END 2023-01-18 10:04 | disposition home or self-care (01) ==
LOC: CHSLAB 10:05
PROVIDERS: PCP Internal Medicine; Visit Provider Nurse Practitioner Family
DX: B19.20 Unspecified viral hepatitis C without hepatic coma (principal)
CPT/HCPCS: 36415; 87522; 87902